=== PATIENT | female | born 1970 | race Caucasian/White ===

== ENCOUNTER 2021-01-09 16:04 | Emergency (ER) | payer OTHER, SELFPAY ==
--- NOTE | ~2021-01-09 | XR_ITS ---
EXAMINATION: XR CHEST CLINICAL INFORMATION: Cough COMPARISON: None TECHNIQUE: Frontal view of the chest was obtained. FINDINGS: The lungs are well-expanded. There is no focal consolidation, edema or effusion. No pneumothorax. The cardiomediastinal silhouette is within normal limits. No acute osseous abnormality. XR/XR chest 1V IMPRESSION: No acute pulmonary disease.
[2021-01-09 17:14] VITALS: BP 199/85; PULSE 107; RESP 19; TEMP 37.2; O2SAT 99; BMI 27.7
[2021-01-09 17:17] LABS: COVID-19 Test Negative (Negative); IDNOW Serial# 9DD0AD1C
--- NOTE | 2021-01-09 19:08 | ED_ITS ---
HPI - URI/Sore Throat General Chief Complaint: Upper Respiratory Symptoms Stated Complaint: Body aches/Coughing Time Seen by Provider: 01/09/21 19:08 Source: patient Mode of arrival: ambulatory Limitations: other (Deaf) History of Present Illness HPI Narrative: Patient with history of asthma common cold symptoms with cough fever chills for last 3 days patient has been had pneumonia 2 weeks ago also patient complaining of burning sensation mid chest feel weak tired dizzy Related Data Previous Rx's Medication Instructions Recorded albuterol sulfate 90 mcg/actuation 2 puff INHALATION Q4-6H PRN #8.5 g 01/09/21 aerosol inhaler (ProAir HFA) cefuroxime axetil 500 mg tablet 500 mg PO BID #20 tab 01/09/21 doxycycline hyclate 100 mg tablet 100 mg PO BID #20 tab 01/09/21 omeprazole 40 mg capsule,delayed 40 mg PO DAILY #30 cap 01/09/21 release prednisone 20 mg tablet 40 mg PO DAILY #10 tab 01/09/21 Allergies Allergy/AdvReac Type Severity Reaction Status Date / Time morphine [MORPHINE] Allergy Intermediate HIVES Verified 01/09/21 17:14 acetazolamide [From Diamox] Allergy Unknown UNKNOWN Verified 01/09/21 17:14 cyclobenzaprine Allergy Unknown SWELLING Verified 01/09/21 17:14 [From FLEXERIL] Iodinated Contrast Media Allergy Unknown RASH Verified 01/09/21 17:14 [IV CONTRAST] methocarbamol [METHOCARBAMOL] Allergy Unknown RASH Verified 01/09/21 17:14 metoclopramide [From REGLAN] Allergy Unknown UNKNOWN Verified 01/09/21 17:14 Sulfa (Sulfonamide Allergy Unknown UNKNOWN Verified 01/09/21 17:14 Antibiotics) [SULFA (SULFONAMIDE ANTIBIOTICS)] ibuprofen [From MOTRIN] AdvReac Mild STOMACH Verified 01/09/21 17:14 UPSET acetaminophen [From VICODIN] AdvReac Unknown VOMITING Verified 01/09/21 17:14 hydrocodone [From VICODIN] AdvReac Unknown VOMITING Verified 01/09/21 17:14 From Diamox Allergy Unknown UNKNOWN Uncoded 12/18/19 17:56 From TORADOL Allergy Unknown ITCHING Uncoded 12/18/19 17:56 From Zofran Allergy Unknown UNKNOWN Uncoded 12/18/19 17:56 SEAFOOD Allergy Unknown HIVES Uncoded 12/18/19 17:56 Review of Systems Review of Systems: Yes all other systems are reviewed and are negative [facility] Social History Social History Alcohol intake: never Patient Tobacco Use Status: Never used Tobacco Use of substances other than those prescribed or required for medical reasons: No Advance Directives: No Advance Directives Information Provided: No Patient : No Physical Exam Vital Signs: Vital Signs: Last Vital Signs Temp 98.7 F 01/09/21 21:40 Pulse 115 H 01/09/21 21:40 Resp 18 01/09/21 21:40 BP 183/78 H 01/09/21 21:40 Pulse Ox 99 01/09/21 21:40 Body Mass Index 27.7 Appearance: Alert. Oriented X3. No acute distress. Deaf ENT: Pharynx normal. Oral Mucosa moist Neck: Normal inspection. Neck supple. CVS: Normal heart rate and rhythm. Pulses normal. Respiratory: No respiratory distress. Equal air entry bilateral, no wheezing/rales/rhonchi prolonged expiration Abdomen: Soft and nontender. Bowel sounds are present, no mass palpable, no CVA tenderness Skin: Skin warm and dry. Normal skin color. Normal skin turgor. Extremities: No lower extremity edema. No calf tenderness Neuro: Oriented X 3. MDM - URI/Sore Throat MDM Narrative Medical decision making narrative: Patient with bronchitis symptoms with fever chest x-ray negative COVID negative discharge patient home on Ceftin and doxycycline has patient's was very sick with same symptoms and had pneumonia. Lab Data Attestation: I reviewed the patient's lab results. Labs: Lab Results 01/09/21 01/09/21 Range/Units 16:46 20:30 POC Glucose 267 H (60-115) mg/dL COVID-19 (AYUSH) Negative (Negative) COVID-19 Clin Com See Note Discharge Plan Discharge Clinical Impression: Bronchitis Patient Disposition: Home, Self-Care Instructions: Acute Bronchitis (ED) Additional Instructions: Take antibiotics and use inhaler as advised Prednisone as prescribed Medicine for gastritis as prescribed Follow-up with your PCP Prescriptions: New prednisone 20 mg tablet 40 mg PO DAILY Qty: 10 RF: 0 cefuroxime axetil 500 mg tablet 500 mg PO BID Qty: 20 RF: 0 albuterol sulfate [ProAir HFA] 90 mcg/actuation HFA aerosol inhaler 2 puff inhalation Q4-6H PRN (Reason: Wheezing) Qty: 8.5 RF: 0 doxycycline hyclate 100 mg tablet 100 mg PO BID Qty: 20 RF: 0 omeprazole 40 mg capsule,delayed release(DR/EC) 40 mg PO DAILY Qty: 30 RF: 0 Interventions: ED Discharge Assessment Last Done: 01/09/21 22:52 Discharge Date/Time: 01/09/21 22:53
[2021-01-09 19:17] VITALS: BP 199/97; PULSE 111; RESP 18; TEMP 37.5; O2SAT 99
[2021-01-09 19:23] VITALS: O2SAT 99
[2021-01-09] MEDS: guaiFEN/Codeine SF 200/20/10ML 10 ML LIQUID PO (19:48)
--- NOTE | 2021-01-09 19:50 | PC.NURSE ---
pt medicated per order, cxr performed, will call RT for breathing treatment
[2021-01-09] MEDS: Albuterol Sulfate 90 MCG 8 GM INHALER 4 PUFF INHALE (20:12)
--- NOTE | 2021-01-09 20:29 | ECG_ITS ---
Test Reason : CHEST PAIN Blood Pressure : / mmHG Vent. Rate : 116 BPM Atrial Rate : 116 BPM P-R Int : 148 ms QRS Dur : 076 ms QT Int : 354 ms P-R-T Axes : 071 016 061 degrees QTc Int : 492 ms Sinus tachycardia Left ventricular hypertrophy with repolarization abnormality Nonspecific ST abnormality Abnormal ECG When compared with ECG of 25-JUN-2017 20:06, ST now depressed in Anterior leads Referred By: Keith Mix Electronically Signed By:VINCENT IRVIN MD
[2021-01-09 20:41] LABS: Glucose, Whole Blood 267 mg/dL (60-115)
--- NOTE | 2021-01-09 21:06 | PC.NURSE ---
patient c/o dizziness, lightheadedness when she ambulated with tech to the bathroom, tech felt she was unsteady with ambulation, pt also c/o 10/10 chest pain and requesting medication for her chest pain. will notify provider.
[2021-01-09 21:10] VITALS: BP 207/90; PULSE 118; RESP 12; TEMP 37.1; O2SAT 99
[2021-01-09 21:40] VITALS: BP 183/78; PULSE 115; RESP 18; TEMP 37.1; O2SAT 99
[2021-01-09] MEDS: Magnesium Hydrox/Alum Hydrox 30 ML ORAL.SUSP PO (21:53)
[2021-01-09] MEDS: Famotidine 20 MG TABLET PO (21:53)
--- NOTE | 2021-01-09 21:55 | PC.NURSE ---
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
== END 2021-01-09 22:53 | disposition home or self-care (01) ==
PROVIDERS: Emergency Provider Internal Medicine; PCP Internal Medicine
DX: J40 Bronchitis, not specified as acute or chronic (principal); Z20.822 Contact with and (suspected) exposure to COVID-19
CPT/HCPCS: 36415; 71045; 82947; 87635; 93005; 99284; 99285

== ENCOUNTER 2021-04-02 19:26 | Emergency (ER) | payer OTHER, SELFPAY ==
--- NOTE | ~2021-04-02 | XR_ITS ---
EXAMINATION: XR CHEST CLINICAL INFORMATION: Chest pain COMPARISON: 01/09/2021 TECHNIQUE: PA view of the chest was obtained. FINDINGS: Lungs are clear. No consolidation, pneumothorax, or pleural effusion. Cardiac and mediastinal contours are normal. Pulmonary vasculature is unremarkable. Trachea is midline. Fusion hardware in the cervical spine. No acute osseous findings. XR/XR chest 1V IMPRESSION: No acute pulmonary disease.
--- NOTE | 2021-04-02 19:31 | ECG_ITS ---
Test Reason : cp Blood Pressure : / mmHG Vent. Rate : 085 BPM Atrial Rate : 085 BPM P-R Int : 154 ms QRS Dur : 086 ms QT Int : 372 ms P-R-T Axes : 080 024 219 degrees QTc Int : 442 ms Normal sinus rhythm Left ventricular hypertrophy with repolarization abnormality ( Sokolow-Barrett ) Abnormal ECG When compared with ECG of 09-JAN-2021 20:32, Inverted T waves have replaced nonspecific T wave abnormality in Inferior leads T wave inversion now evident in Anterior leads Referred By: Generic ED Physician Electronically Signed By:NERI BURGESS MD
== END 2021-04-02 22:08 | disposition left against medical advice (07) ==
PROVIDERS: Emergency Provider Emergency Medicine
DX: R07.9 Chest pain, unspecified (principal)
CPT/HCPCS: 71045; 93005; 99281; 99283

== ENCOUNTER 2021-05-09 11:33 | Emergency (ER) | payer OTHER, SELFPAY ==
--- NOTE | ~2021-05-09 | CT_ITS ---
EXAMINATION: CT HEAD WITHOUT CONTRAST CLINICAL INFORMATION: Neurologic symptoms. COMPARISON: CT head from 02/13/2015. TECHNIQUE: Contiguous axial imaging was performed from the skull base to vertex without intravenous administration of contrast. This CT examination was performed using dose optimization techniques as appropriate, variously including the following: *Automated exposure control. *Adjustment of mA and/or kV according to patient size (this includes techniques or standardized protocols for targeted exams where dose is matched to indication/reason for exam; i.e. extremities or head). *Use of iterative reconstruction technique. DLP: 579 mGy-cm FINDINGS: There is no evidence of acute intracranial hemorrhage or edematous territorial infarction. There is no abnormal attenuation within the brain parenchyma. Chronic regions of encephalomalacia within the right greater than left caudate heads and right lentiform nucleus. Exvacuodilatation of the frontal horn of the right lateral ventricle. No additional loss of paige-white matter differentiation. The ventricles are normal in size and configuration. No evidence for obstructive hydrocephalus. There is a 0.8 cm calcific meningioma along the undersurface of the left tentorial leaflet. No additional Abnormal mass effect or midline shift. No extra-axial fluid collections. No acute soft tissue or osseous abnormalities. The mastoid air cells and paranasal sinuses are clear. 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 CT/CT head/brain wo con IMPRESSION: 1. No evidence of acute intracranial hemorrhage or edematous territorial infarction. 2. Chronic regions of encephalomalacia within the right greater than left caudate heads and right lentiform nucleus.
[2021-05-09 11:42] VITALS: BP 148/51; PULSE 72; RESP 16; TEMP 36.6; O2SAT 99; BMI 26.3
--- NOTE | 2021-05-09 12:07 | ED_ITS ---
HPI - Back Pain/Injury General Chief Complaint: Back Pain/Injury Stated Complaint: leg issues Time Seen by Provider: 05/09/21 12:07 Source: patient Mode of arrival: ambulatory Limitations: no limitations History of Present Illness HPI Narrative: Patient is a 51 year old female presenting to the emergency department today with low back pain and upper leg numbness for the last few weeks. 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 Patient states that she has had this happen before and it resolved on it's own. Patient denies any dizziness, lightheadedness, abdominal pain, nausea, vomiting, fever, chills, blurry vision, double vision, loss of vision, chest pain, difficulty breathing, shortness of breath, night sweats, pain with urination, increased urinary frequency, increased urinary urgency, blood in [his/her] urine or stool, syncope or a near syncopal episode, recent trauma or falls, bowel incontinence, bladder incontinence, bowel retention, bladder retention, or any other complaints at this time. Patient states that she has a history of stroke. MD elicited complaint: back pain Pertinent past history: prior back pain and neurological deficit Onset (ago): week(s) Timing: intermittent Severity: mild Similar Symptoms Previously: Yes Quality: dull Location: lumbar spine Radiation: none Exacerbating factors: none Relieving factors: none Related Data Previous Rx's Medication Instructions Recorded albuterol sulfate 90 mcg/actuation 2 puff INHALATION Q4-6H PRN #8.5 01/09/21 g aerosol inhaler (ProAir HFA) cefuroxime axetil 500 mg tablet 500 mg PO BID #20 tab 01/09/21 doxycycline hyclate 100 mg tablet 100 mg PO BID #20 tab 01/09/21 omeprazole 40 mg capsule,delayed 40 mg PO DAILY #30 cap 01/09/21 release prednisone 20 mg tablet 40 mg PO DAILY #10 tab 01/09/21 Allergies Allergy/AdvReac Type Severity Reaction Status Date / Time morphine [MORPHINE] Allergy Intermediate HIVES Verified 05/09/21 11:48 acetazolamide [From Allergy Unknown UNKNOWN Verified 05/09/21 11:48 Diamox] cyclobenzaprine Allergy Unknown SWELLING Verified 05/09/21 11:48 [From FLEXERIL] Iodinated Contrast Allergy Unknown RASH Verified 05/09/21 11:48 Media [IV CONTRAST] methocarbamol Allergy Unknown RASH Verified 05/09/21 11:48 [METHOCARBAMOL] metoclopramide [From Allergy Unknown UNKNOWN Verified 05/09/21 11:48 REGLAN] Sulfa (Sulfonamide Allergy Unknown UNKNOWN Verified 05/09/21 11:48 Antibiotics) [SULFA (SULFONAMIDE ANTIBIOTICS)] ibuprofen [From AdvReac Mild STOMACH Verified 05/09/21 11:48 MOTRIN] UPSET acetaminophen [From AdvReac Unknown VOMITING Verified 05/09/21 11:48 VICODIN] hydrocodone [From AdvReac Unknown VOMITING Verified 05/09/21 11:48 VICODIN] From Diamox Allergy Unknown UNKNOWN Uncoded 12/18/19 17:56 From TORADOL Allergy Unknown ITCHING Uncoded 12/18/19 17:56 From Zofran Allergy Unknown UNKNOWN Uncoded 12/18/19 17:56 SEAFOOD Allergy Unknown HIVES Uncoded 12/18/19 17:56 Review of Systems Verdana 4l Constitutional: Verdana 4d Constitutional: Verdana 4d Verdana 4d Reports no additional constitutional complaints, Denies chills, Denies fever(s) and Denies night sweats Verdana 4l Eyes: Verdana 4d Verdana 4d Eyes: Verdana 4d Reports no additional eye complaints, Denies blurry vision, Denies change in vision, Denies diplopia, Denies eye discharge, Denies loss of vision and Denies eye pain Verdana 4l ENT: Verdana 4d Denies dizziness Verdana 4l Cardiovascular: Verdana 4d Cardiovascular: Verdana 4d Verdana 4d Reports no additional cardiovascular complaints, Denies chest pain, Denies lightheadedness, Denies Loss of Consciousness and Denies dyspnea Verdana 4l Respiratory: Verdana 4d Verdana 4d Respiratory: Verdana 4d Reports no additional respiratory complaints and Denies dyspnea Verdana 4l Gastrointestinal: Verdana 4d Gastrointestinal: Verdana 4d Verdana 4d Reports no additional gastrointestinal complaints, Denies abdominal pain, Denies melena, Denies hematochezia, Denies change in bowel habits and Denies change in stool character Verdana 4l Genitourinary: Verdana 4d Verdana 4d Genitourinary: Verdana 4d Denies hematuria, Denies urinary frequency, Denies dysuria, Denies urinary incontinence, Denies urinary hesitancy and Denies urinary urgency Verdana 4l Musculoskeletal: Verdana 4d Musculoskeletal: Verdana 4d Verdana 4d Reports no additional musculoskeletal complaints, Reports back pain, Denies numbness and Denies tingling Verdana 4l Neurologic: Verdana 4d Denies dizziness, Denies loss of vision, Denies numbness and Denies tingling Verdana 4l Psychiatric: Verdana 4d Verdana 4d Psychiatric: Verdana 4d Reports no additional psychiatric complaints Verdana 4l Endocrine: Verdana 4d Verdana 4d Endocrine: Verdana 4d Reports no additional endocrine complaints Verdana 4l Hematologic/Lymphatic: Verdana 4d Hematologic/Lymphatic: Verdana 4d Verdana 4d Reports no additional hematologic/lymphatic complaints Verdana 4l Allergic/Immunologic: Verdana 4d Allergic/Immunologic: Verdana 4d Verdana 4d Reports no additional allergic/immunologic complaints PMFSH Past Medical History Attestation statement: The following information was validated with the patient. Source: old records reviewed Social History Social History Alcohol intake: never Patient Tobacco Use Status: Never used Tobacco Advance Directives: No Advance Directives Information Provided: No Physical Exam Verdana 4l Vital Signs: Verdana 4d Verdana 4d Vital Signs: Verdana 4d Verdana 4Bd Last Vital Signs Verdana 4d Cloth Checker New 4d Cloth Checker New 4d Temp 97.9 F 05/09/21 11:42 Cloth Checker New 4d Pulse 60 05/09/21 12:52 Cloth Checker New 4d Resp 18 05/09/21 12:52 BP 161/59 H 05/09/21 12:52 Pulse Ox 99 05/09/21 12:52 BMI result Body Mass Index 26.3 Const: General: cooperative, no acute distress, alert and awake Nutritional A ppearance: well nourished Orientation/consciousness: patient oriented x3 Limitations: no limitations HENMT: Head: Yes normal to inspection and Yes atraumatic Ears: external ears normal General nose exam: Normal external nose present, no nasal discharge noted and no epistaxis Face and sinus: Yes normal facial exam, No abrasion and No laceration Mouth: Normal oral and palatal mucosa present and no drooling Eyes: General: appearance normal, both eyes and all related structures Periorbital: periorbital findings normal Eyelids: Yes eyelids normal Conjunctivae: conjunctivae normal Pupils: Equal, round and reactive pupils present EOM: EOMs intact bilaterally Neck: Neck: Yes normal visual inspection, Yes full ROM and Yes no lymphadenopathy Chest: Chest palpation & inspection: normal inspection of the chest Resp: Effort & Inspection: normal respiratory effort and able to speak in complete sentences Auscultation: clear to auscultation bilaterally Cardio: Rate: regular rate Rhythm: regular rhythm GI: Inspection: Yes normal to inspection Back/Spine/Pelvis: Back: No back tenderness Neuro: General: patient oriented x3 and moves all extremities Cranial nerves: Yes Equal, round and reactive pupils present Cognition (Neuro): normal cognition Motor exam (neuro): 5/5 motor strength present throughout Sensory Exam: Normal double simultaneous stimulation for sensation Coordination: [id number] test normal Extrem: General: Yes normal to inspection, Yes full ROM and Yes capillary refill normal Psych: Appearance: grossly normal Mental Status: mental status grossly normal Affect: normal affect Attitude: cooperative Thought process: Normal thought process present Thought content: Normal thought content present Insight: Good insight present (Psych) NIH Stroke Scale Internal: Initial- Upon Arrival Time: 12:07 Level of Consciousness: Alert Level of Consciousness Questions: Answers both questions correctly Level of Consciousness Commands: Performs both tasks correctly Best Gaze: Normal Visual: No visual loss Facial Palsy: Normal Motor Arm (Right): No drift Motor Arm (Left): No drift Motor Leg (Right): No drift Motor Leg (Left): No drift Limb Ataxia: Absent Sensory: Normal Best Language: No aphasia Dysarthia: Normal Extinction and Inattention: No abnormality Score: 0 MDM - Back Pain/Injury MDM Narrative Medical decision making narrative: Patient is a 51 year old female presenting to the emergency department today with low back pain and upper leg numbness. Patient's physical exam was unremarkable. Patient's neurological exam was negative and completely normal. Patient's blood work was unremarkable. Patient's head CT showed no acute process. I explained my physical exam findings as well as all test results to the patient. I answered all questions asked by the patient. I stressed the importance of the patient taking her regular medication as prescribed. I stressed the importance of the patient following up with her primary care provider. I stressed the importance of the patient returning to the emergency department immediately if her symptoms were to worsen or if she were to develop any dizziness, shortness of breath, difficulty breathing, chest pain, blurry vision, loss of vision, nausea, vomiting, abdominal pain, fever, chills, back pain, or any other complaints. Patient verbalized agreement and understanding with this treatment plan and discharge. Differential Diagnosis Differential diagnosis: Likely lumbar radiculopathy, sciatica and strain of lumbar region Medical Records Attestation: I reviewed the patient's medical records. Lab Data Result diagrams: 05/09/21 12:45 05/09/21 12:45 Labs: Lab Results 05/09/21 05/09/21 Range/Units 12:45 12:45 WBC 4.9 (4.8-10.8) X10*3/uL RBC 4.46 (4.20-5.50) X10*6/uL Hgb 12.1 (12.0-16.0) g/dl Hct 36.7 L (37.0-47.0) % MCV 82.3 (80.0-98.0) fL MCH 27.1 (27.0-33.0) pg MCHC 33.0 (31.0-35.0) g/dl RDW 14.4 (11.0-16.0) % Plt Count 151 L (160-400) X10*3/uL MPV 10.0 (9.4-12.3) fL Immature Gran % (Auto) 0.2 (0.0-0.4) % Neut % (Auto) 49.4 (45-73) % Lymph % (Auto) 40.9 H (20-40) % Foster % (Auto) 5.7 (2-11) % Eos % (Auto) 3.4 (0-4) % Baso % (Auto) 0.4 (0-2) % Lymph # (Auto) 2.0 (1.2-4.9) X10*3/uL Foster # (Auto) 0.3 (0.1-1.2) X10*3/uL Eos # (Auto) 0.2 (0.0-0.4) X10*3/uL Baso # (Auto) 0.0 (0.0-0.2) X10*3/uL Abs Immat Gran (auto) 0.01 (0.00-0.03) X10*3/uL Absolute Neuts (auto) 2.4 (2.0-8.3) x10*3/uL Absolute Nucleated RBC 0.000 (0.0-0.012) X10*3/uL Nucleated RBC % (auto) 0.0 (0.0-0.2) /100WBC Sodium 139 (135-145) mmol/L Potassium 3.8 (3.3-5.1) mmol/L Chloride 105 (96-108) mmol/L Carbon Dioxide 27 (22-29) mmol/L Anion Gap 11 L (12-20) BUN 10 (9-16) mg/dL Creatinine 0.80 (0.5-1.4) mg/dL Estim Creat Clear Calc 81.3 Estimated GFR > 60 Fasting Glucose 188 H (60-99) mg/dL Calcium 8.7 (8.4-10.2) mg/dL Total Bilirubin 0.9 (0.0-1.0) mg/dL AST 17 (5-31) U/L ALT 20 (0-31) U/L Alkaline Phosphatase 111 (39-117) U/L Total Protein 6.4 L (6.5-8.0) g/dL Albumin 4.3 (3.5-5.0) g/dL Imaging Data CT scan - head: Attestation: I personally reviewed and interpreted this imaging study as follows: Radiologist's impression: FINDINGS: There is no evidence of acute intracranial hemorrhage or edematous territorial infarction. There is no abnormal attenuation within the brain parenchyma. Chronic regions of encephalomalacia within the right greater than left caudate heads and right lentiform nucleus. Exvacuodilatation of the frontal horn of the right lateral ventricle. No additional loss of paige-white matter differentiation. The ventricles are normal in size and configuration. No evidence for obstructive hydrocephalus. There is a 0.8 cm calcific meningioma along the undersurface of the left tentorial leaflet. No additional Abnormal mass effect or midline shift. No extra-axial fluid collections. No acute soft tissue or osseous abnormalities. The mastoid air cells and paranasal sinuses are clear. 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 CT/CT head/brain wo con IMPRESSION: 1. No evidence of acute intracranial hemorrhage or edematous territorial infarction. 2. Chronic regions of encephalomalacia within the right greater than left caudate heads and right lentiform nucleus. ? Dictated By: PEDRO HOLLINGSWORTH DO Signed By: Electronically signed by PEDRO HOLLINGSWORTH DO 05/09/21 Discharge Plan Discharge Clinical Impression: Lumbar radiculopathy Patient Disposition: Home, Self-Care Instructions: Lumbar Radiculopathy (ED), Back Pain (ED) Prescriptions: No Action prednisone 20 mg tablet 40 mg PO DAILY Qty: 10 0RF cefuroxime axetil 500 mg tablet 500 mg PO BID Qty: 20 0RF albuterol sulfate [ProAir HFA] 90 mcg/actuation HFA aerosol inhaler 2 puff inhalation Q4-6H PRN (Reason: Wheezing) Qty: 8.5 0RF doxycycline hyclate 100 mg tablet 100 mg PO BID Qty: 20 0RF omeprazole 40 mg capsule,delayed release(DR/EC) 40 mg PO DAILY Qty: 30 0RF Referrals: Ct Multani MD [Primary Care Provider] - 2 days Interventions: ED Discharge Assessment Last Done: 05/09/21 14:45 Discharge Date/Time: 05/09/21 14:45 Print Language: Pashto
[2021-05-09 12:49] LABS: MANUAL DIFF FLAG NO
[2021-05-09 12:52] VITALS: BP 161/59; PULSE 60; RESP 18; O2SAT 99
[2021-05-09 12:56] LABS: Basophils Percent Auto 0.4 % (0-2); Eosinophils Absolute Auto 0.2 X10*3/uL (0.0-0.4); Eosinophils Percent Auto 3.4 % (0-4); Hematocrit 36.7 % (37.0-47.0); Hemoglobin 12.1 g/dl (12.0-16.0); Imm Gran Abs Auto 0.01 X10*3/uL (0.00-0.03); Imm Gran Pct Auto 0.2 % (0.0-0.4); Lymphocytes Percent Auto 40.9 % (20-40); Mean Corpuscular Hemoglobin 27.1 pg (27.0-33.0); Mean Corpuscular Volume 82.3 fL (80.0-98.0); Monocytes Absolute Auto 0.3 X10*3/uL (0.1-1.2); Monocytes Percent Auto 5.7 % (2-11); Neutrophils Absolute Auto 2.4 x10*3/uL (2.0-8.3); Neutrophils Percent Auto 49.4 % (45-73); Platelet Count 151 X10*3/uL (160-400); Red Blood Count 4.46 X10*6/uL (4.20-5.50); Red Cell Distribution Width 14.4 % (11.0-16.0); White Blood Count 4.9 X10*3/uL (4.8-10.8)
[2021-05-09 13:17] LABS: Alanine Aminotransferase 20 U/L (0-31); Albumin Level 4.3 g/dL (3.5-5.0); Alkaline Phosphatase 111 U/L (39-117); Anion Gap 11 (12-20); Aspartate Amino Transferase 17 U/L (5-31); Bilirubin Total 0.9 mg/dL (0.0-1.0); Blood Urea Nitrogen 10 mg/dL (9-16); Calcium 8.7 mg/dL (8.4-10.2); Carbon Dioxide 27 mmol/L (22-29); Chloride 105 mmol/L (96-108); Creatinine Clr Calc Pharmacy 81.3; Estimated Glomerular Filt Rate > 60; Glucose Fasting 188 mg/dL (60-99); Potassium 3.8 mmol/L (3.3-5.1); Sodium 139 mmol/L (135-145); Total Protein 6.4 g/dL (6.5-8.0)
== END 2021-05-09 14:45 | disposition home or self-care (01) ==
PROVIDERS: Physician Assistant Medical; Emergency Provider Emergency Medicine; PCP Internal Medicine
DX: M54.16 Radiculopathy, lumbar region (principal); M54.50 Low back pain, unspecified
CPT/HCPCS: 36415; 70450; 80053; 85025; 99284